=== PATIENT | female | born 1940 | race Caucasian/White ===

== ENCOUNTER 2016-08-01 09:00 | Day surgery (SDC) | payer BC, OTHER ==
[2016-08-01 10:01] VITALS: BMI 20.2
[2016-08-01 11:17] VITALS: TEMP 97.5
[2016-08-01 11:50] VITALS: PULSE 62
[2016-08-01 11:59] VITALS: BP 134/68
== END 2016-08-01 12:05 | disposition home or self-care (01) ==
LOC: JASU-ENDO 09:00
PROVIDERS: ATTEND Internal Medicine Gastroenterology
PROC: 0DJD8ZZ Inspection of Lower Intestinal Tract, Via Natural or Artificial Opening Endoscopic (ICD-10-PCS; principal; 2016-08-01 10:30)
DX: Z12.11 Encounter for screening for malignant neoplasm of colon (principal); Z86.010 Personal history of colon polyps; K63.89 Other specified diseases of intestine; K64.8 Other hemorrhoids